=== PATIENT | male | born 1960 | race Caucasian/White ===

== ENCOUNTER 2017-12-10 14:37 | Inpatient (IN) | payer OTHER ==
[2017-12-10 15:59] VITALS: BMI 36.9
--- NOTE | 2017-12-10 19:36 | HP ---
COWS - Scale Resting Pulse: 0= ID 80 or Below Sweatin= Beads of Sweat on Face Restless Observation: 1= Difficult to Sit Still Pupil Size: 1= Pupils >than Normal Bone or Joint Aches: 1= Mild Discomfort (around hips r/t withdrawal) Runny Nose/ Eye Tearin= Runny Nose/Eyes GI Upset > 30mins: 2= Nausea/Diarrhea (nausea. No diarrhea.) Tremor Observation: 2= Slight Tremor Visible Yawning Observation: 0= None Anxiety or Irritability: 1=Feels Anxious/Irritable Goose Flesh Skin: 0=Smooth Skin COWS Score: 13 Admission ROS [facility] Chief Complaint: Here for heroin withdrawal. Allergies/Adverse Reactions: Allergies Allergy/AdvReac Type Severity Reaction Status Date / Time No Known Allergies Allergy Verified 12/10/17 17:16 History of Present Illness: Used to use heroin at age 25 for years. Was incarcerated for 15 years years and heroin use was minimal. Last incarceration 2007- 2015 and restarted heroin use after 4 years sobriety during last incarcerated. Went to [facility] program for 12/2015 to July 2017. Relapsed 30 days ago and has been using daily for last month. Denies alcohol or benzo use. States when discharged will go to [facility] out-patient program. Hx. depression and PTSD and on medications being f/u by psychiatry at the [facility]. Denies significant PMH/PSH. Uses chewing tobacco. Exam Limitations: No Limitations - Ebola screening Have you traveled outside of the country in the last 21 days: No (N) Have you had contact with anyone from an Ebola affected area: No Have you been sick,other than usual withdrawal symptoms: No Do you have a fever: No - Review of Systems Constitutional: Diaphoresis, Loss of Appetite (r/t withdrawal), Changes in sleep (Has difficulty falling and stayig asleep. States seroquel helps.) EENT: reports: Blurred Vision (Wears glasses.) Respiratory: reports: No Symptoms reported, SOB with Exertion (Feels r/t weight and stomach girth.) Cardiac: reports: No Symptoms Reported GI: reports: Abdominal Distended (r/t obesity), Nausea (r/t withdrawal) : reports: No Symptoms Reported Musculoskeletal: reports: No Symptoms Reported (Only r/t withdrawal) Integumentary: reports: Pruritus (r/t withdrawal) Neuro: reports: Tremors Endocrine: reports: No Symptoms Reported Hematology: reports: No Symptoms Reported Psychiatric: reports: Orientated x3, Agitated, Anxious, Depressed (Hx depression and PTSD. Denies suicide or violent ideation.) Patient History - Patient Medical History Hx Anemia: No Hx Asthma: No Hx Chronic Obstructive Pulmonary Disease (COPD): No Hx Cancer: No Hx Cardiac Disorders: No Hx Congestive Heart Failure: No Hx Hypertension: No Hx Hypercholesterolemia: No Hx Pacemaker: No HX Cerebrovascular Accident: No Hx Seizures: No Hx Diabetes: No Hx Gastrointestinal Disorders: No Hx Liver Disease: No Hx Genitourinary Disorders: No Hx Sexually Transmitted Disorders: No Hx Renal Disease (ESRD): No Hx Thyroid Disease: No Hx Human Immunodeficiency Virus (HIV): No (2015) Hx Hepatitis C: Yes (Rx'd w/ Harvoni) Hx Depression: Yes (On meds. Denies S/) Hx Suicide Attempt: No Hx Bipolar Disorder: No Hx Schizophrenia: No - Patient Surgical History Past Surgical History: No Hx Neurologic Surgery: No Hx Cataract Extraction: No Hx Cardiac Surgery: No Hx Lung Surgery: No Hx Breast Surgery: No Hx Breast Biopsy: No Hx Abdominal Surgery: Yes (HERNIA REPAIR- 2017) Hx Appendectomy: No Hx Cholecystectomy: No Hx Genitourinary Surgery: No Hx Section: No Hx Orthopedic Surgery: No Anesthesia Reaction: No - PPD History Previous Implant?: Yes Documented Results: Negative w/proof PPD to be Administered?: Yes - Smoking Cessation Smoking history: Former smoker Have you smoked in the past 12 months: No If you are a former smoker, when did you quit?: 2003 Hx Chewing Tobacco Use: Yes (3-4 pinchs daily since 2015) Initiated information on smoking cessation: Yes 'Breaking Loose' booklet given: 12/10/17 - Substance & Tx. History Hx Alcohol Use: No Hx Substance Use: Yes (Heroin) Substance Use Type: Heroin Hx Substance Use Treatment: Yes ([facility]) - Substances Abused Heroin Route: Inhalation Frequency: Daily Amount used: 3 BAGS Age of first use: 25 Date of Last Use: 12/10/17 (1 am) Family Disease History - Family Disease History Family Disease History: CA: Mother (Breast cancer - ), Sister (Breast cancer - 1 is ), Other: Grandparent (Alcoholism), Father (Alcoholism), Brother (Alcoholism) Admission Physical Exam [facility] - Vital Signs Vital Signs: Vital Signs - 24 hr 12/10/17 15:58 Temperature 96.2 F L Pulse Rate 73 Respiratory 20 Rate Blood Pressure 167/97 - Physical General Appearance: Yes: Obese (Greatest is abdominal adiposity), Tremorous, Irritable (mildly, but polite), Sweating, Anxious HEENTM: Yes: EOMI, Hearing grossly Normal, MAREN Respiratory: Yes: Chest Non-Tender, Lungs Clear, Normal Breath Sounds, No Respiratory Distress Neck: Yes: No masses,lesions,Nodules, Supple Breast: Yes: Breast Exam Deferred Cardiology: Yes: Regular Rhythm, Regular Rate, S1, S2 Abdominal: Yes: Normal Bowel Sounds, Non Tender, Soft, Protuberent Genitourinary: Yes: Within Normal Limits Back: Yes: Normal Inspection Musculoskeletal: Yes: full range of Motion, Gait Steady Extremities: Yes: Normal Capillary Refill, Normal Range of Motion, Non-Tender, Tremors (extended arms) Neurological: Yes: industrial relations representative II-XII NML intact, Fully Oriented, Motor Strength 5/5 Integumentary: Yes: Normal Color, Dry (poor skin turgor), Warm Lymphatic: Yes: Within Normal Limits - Diagnostic (1) Opiate withdrawal Current Visit: Yes Status: Acute (2) Insomnia Current Visit: Yes Status: Acute Qualifiers: Insomnia type: unspecified Qualified Code(s): G47.00 - Insomnia, unspecified (3) Dehydration Current Visit: Yes Status: Acute (4) Obesity (BMI 30-39.9) Current Visit: Yes Status: Acute (5) Withdrawal state due to use of tobacco Current Visit: Yes Status: Acute Cleared for Admission [facility] - Detox or Rehab [facility] Level of Care: Medically Managed Detox Regimen/Protocol: Methadone [facility] Breath Alcohol Content Breath Alcohol Content: 0 Urine Drug Screen - Results Drug Screen Negative: No Urine Drug Screen Results: OPI-Opiates
[2017-12-10] MEDS ORDERED: MENTHOL/PHENOL 1 EACH UD MM PRN (20:04)
[2017-12-10] MEDS ORDERED: guaiFENesin/D-METHORPHAN HB 10 ML UNIT-DOSE CUPS PO PRN (20:04)
[2017-12-10] MEDS ORDERED: ACETAMINOPHEN 325 MG TABLET (FP) PO PRN (20:04)
[2017-12-10] MEDS ORDERED: IBUPROFEN 400 MG TABLET (FP) PO PRN (20:04)
[2017-12-10] MEDS ORDERED: NICOTINE POLACRILEX 2 MG GUM BC PRN (20:04)
[2017-12-10] MEDS ORDERED: MAG HYDROX/AL HYDROX/SIMETH 30 ML UNIT-DOSE CUP PO PRN (20:04)
[2017-12-10] MEDS ORDERED: P-EPHED 60MG/TRIPROLIDI 2.5MG TABLET PO PRN (20:04)
[2017-12-10] MEDS ORDERED: MAGNESIUM HYDROX 2400MG/30ML ORAL SUSPENSION 30 ML CUP PO PRN (20:04)
[2017-12-10] MEDS ORDERED: MAGNESIUM CITRATE 300 ML BOTTLE PO PRN (20:04)
[2017-12-10] MEDS ORDERED: LOPERAMIDE HCL 2 MG CAPSULE PO PRN (20:04)
[2017-12-10] MEDS ORDERED: hydrOXYzine PAMOATE 50 MG CAPSULE (FP) PO PRN (20:04)
[2017-12-10] MEDS ORDERED: METHADONE HCL 10 MG TABLET (FOR DETOX USE ONLY) PO ONE ×2 (20:04→23:00)
[2017-12-10] MEDS ORDERED: MELATONIN 5 MG TABLETS PO PRN (22:00)
[2017-12-10] MEDS: THIAMINE HCL 100 MG TABLET (FP) PO SCH (22:04)
[2017-12-10] MEDS: diazePAM 5 MG TABLET PO PRN (22:04)
[2017-12-10 23:31] LABS: URINE APPEARANCE CLEAR; URINE BILIRUBIN NEGATIVE (<2.0 mg/dL); URINE BLOOD NEGATIVE (NEGATIVE); URINE COLOR YELLOW; URINE GLUCOSE (UA) NEGATIVE (NEGATIVE); URINE KETONE NEGATIVE (NEGATIVE); URINE LEUK ESTERASE NEGATIVE (NEGATIVE); URINE NITRITE NEGATIVE (NEGATIVE); URINE PROTEIN NEGATIVE (NEGATIVE)
[2017-12-11] MEDS ORDERED: METHADONE HCL 10 MG TABLET (FOR DETOX USE ONLY) PO ONE (10:00)
[2017-12-11 10:06] LABS: HEMATOCRIT 36.8 % (35.4-49); HEMOGLOBIN 12.8 GM/dL (11.7-16.9); MCH 32.6 pg (25.7-33.7); MCHC 34.8 g/dl (32.0-35.9); MEAN CELL VOLUME 93.7 fl (80-96); MEAN PLT VOLUME 7.7 fl (7.5-11.1); PLATELET COUNT 288 K/MM3 (134-434); RBC 3.92 M/mm3 (4.00-5.60); RDW 12.4 % (11.9-15.9); WHITE BLOOD COUNT 5.7 K/mm3 (4.0-10.0)
[2017-12-11] MEDS: diazePAM 5 MG TABLET PO PRN (10:09)
[2017-12-11] MEDS: NICOTINE 14 MG/24 HOURS TOPICAL PATCH TD SCH (10:09)
[2017-12-11] MEDS: PRENATAL VITAMINS W/ FOLIC ACID TABLET (FP) PO SCH (10:09)
[2017-12-11 12:17] LABS: ALBUMIN 3.4 g/dl (3.4-5.0); ANION GAP 7 (8-16); BILIRUBIN,TOTAL 0.5 mg/dL (0.2-1.0); BLOOD UREA NITROGEN 16 mg/dL (7-18); CALCIUM 8.7 mg/dL (8.5-10.1); CHLORIDE 102 mmol/L (98-107); CO2 30 mmol/L (21-32); CREATININE 1.2 mg/dL (0.7-1.3); GLUCOSE,RANDOM 88 mg/dL (74-106); POTASSIUM 4.1 mmol/L (3.5-5.1); SGOT/AST 20 U/L (15-37); SGPT/ALT 34 U/L (12-78); SODIUM 139 mmol/L (136-145); TOT PROT 6.3 g/dl (6.4-8.2)
--- NOTE | 2017-12-11 12:24 | EKG ---
Test Reason : Blood Pressure : / mmHG Vent. Rate : 067 BPM Atrial Rate : 067 BPM P-R Int : 162 ms QRS Dur : 102 ms QT Int : 406 ms P-R-T Axes : 032 005 029 degrees QTc Int : 429 ms NORMAL SINUS RHYTHM NORMAL ECG NO PREVIOUS ECGS AVAILABLE Confirmed by MD MARIIA, BERNY ([id number]) on 12/11/2017 12:24:07 PM Referred By: Confirmed By:BERNY CHIANG MD
[2017-12-11 12:51] LABS: ALK PHOS 67 U/L (45-117)
--- NOTE | 2017-12-11 13:27 | CONSULT ---
[facility] Psychiatric Consult - Data Date of interview: 12/11/17 Admission source: [facility] Identifying data: First admission to [facility] for this 57 y/o male seeking detox treatment on for heroin dependence.Patient is single without dependents,domiciled,unemployed and supported on Public Assistance.Mr Moreau introduces self as a [employer] who served three years (discharged in 1982).Never exposed to combat situations.Was stationed in the [facility]. Substance Abuse History: Confirmed by the patient in my interview.Smoking history: Former smoker. Have you smoked in the past 12 months: No. If you are a former smoker, when did you quit?: 2003. Hx Chewing Tobacco Use: Yes (3-4 pinchs daily since 2015). Initiated information on smoking cessation: Yes. ' Breaking Loose' booklet given: 12/10/17. - Substance & Tx. History. Hx Alcohol Use: No. Hx Substance Use: Yes (Heroin). Substance Use Type: Heroin. Hx Substance Use Treatment: Yes ([facility]). - Substances Abused. Heroin. Route: Inhalation. Frequency: Daily. Amount used: 3 BAGS. Age of first use: 25. Date of Last Use: 12/10/17 (1 am) Medical History: Obesity,hepatitis C and a history of abdominal herniorraphy ( 2017). Psychiatric History: One psychiatric hospitalization (1986) at the [facility] in [facility] for suicide attempt via hanging during incarceration.Patient endorses the diagnoses of MDD and PTSD.Sees a psychiatrist at the [facility] mental health clinic.Prescribed gabapentin 300 mg po tid + abilify 20 mg/day + depakote 500 mg/daily + seroquel 50 mg/ hs.Mr Moreau insists that he is adherent to his medications.Last taken prior to this [facility] visit.No recurrence of suicide attempts since 1986. Physical/Sexual Abuse/Trauma History: Heavy history of trauma : patient served 26 cumulative years in care home.Was charged with attempted murder as per self- report.Remains on parole until August 2018.Admits to episodic flashbacks and nightmares over the years. Additional Comment: Urine Drug Screen Results: OPI-Opiates.Noted. Mental Status Exam - Mental Status Exam Alert and Oriented to: Time, Place, Person Cognitive Function: Good Patient Appearance: Well Groomed (short stature,overweight ; both arms + forearms covered with tattoos) Mood: Withdrawn, Anxious Affect: Constricted Patient Behavior: Fatigued, Appropriate, Cooperative Speech Pattern: Clear, Appropriate Voice Loudness: Normal Thought Process: Goal Oriented Thought Disorder: Not Present Hallucinations: Denies Suicidal Ideation: Denies Homicidal Ideation: Denies Insight/Judgement: Fair Sleep: Poorly, Difficulty falling asleep Appetite: Good Muscle strength/Tone: Normal Gait/Station: Normal Psychiatric Findings - Problem List (Roy 1, 2,3) (1) Opioid dependence with withdrawal Current Visit: Yes Status: Acute (2) Substance induced mood disorder Current Visit: Yes Status: Acute (3) Post traumatic stress disorder (PTSD) Current Visit: Yes Status: Chronic Comment: As per self-report. (4) Insomnia Current Visit: Yes Status: Acute Qualifiers: Insomnia type: unspecified Qualified Code(s): G47.00 - Insomnia, unspecified - Initial Treatment Plan Initial Treatment Plan: Psychoeducation.Sleep hygiene.Detoxification in progress.Medications : seroquel 50 mg po hs + abilify 20 mg po daily + gabapentin 300 mg po tid + depakote 500 mg po hs.Side effects/benefits of each drug are explained to the patient.Made aware of risk of metabolic syndrome, oversedation,liver dysfunction,blood dyscrasias,hair loss and orthostasis.Mr Moreau reports good tolerability to his medications and he insists on their inclusion in the current regimen.Valproic acid level : requested.Will follow.Monitor daily clinical course.
--- NOTE | 2017-12-11 13:29 | PN ---
BHS COWS - Scale Resting Pulse: 0= MA 80 or Below Sweatin= Chills/Flushing Restless Observation: 1= Difficult to Sit Still Pupil Size: 0= Normal to Room Light Bone or Joint Aches: 2= Severe Diffuse Aches Runny Nose/ Eye Tearin= None GI Upset > 30mins: 2= Nausea/Diarrhea Tremor Observation of Outstretched Hands: 0= None Yawning Observation: 1= 1-2x During Session Anxiety or Irritability: 2=Irritable/Anxious Goose Flesh Skin: 3=Piloerection COWS Score: 12 BHS Progress Note (SOAP) Subjective: Anxious, Nausea, Body Aches, Sweating. Objective: PATIENT A & O X 3, OBSERVED AMBULATING ON UNIT. NO ACUTE DISTRESS. 12/11/17 13:28 Vital Signs Temperature 98.5 F 12/11/17 09:04 Pulse Rate 70 12/11/17 09:04 Respiratory Rate 18 12/11/17 09:04 Blood Pressure 132/82 12/11/17 09:04 O2 Sat by Pulse Oximetry (%) Laboratory Tests 12/10/17 12/11/17 12/11/17 22:30 07:20 07:20 WBC 5.7 RBC 3.92 L Hgb 12.8 Hct 36.8 MCV 93.7 MCH 32.6 MCHC 34.8 RDW 12.4 Plt Count 288 MPV 7.7 Sodium 139 Potassium 4.1 Chloride 102 Carbon Dioxide 30 Anion Gap 7 L BUN 16 Creatinine 1.2 Creat Clearance w eGFR > 60 Random Glucose 88 Calcium 8.7 Total Bilirubin 0.5 AST 20 ALT 34 Alkaline Phosphatase 67 Total Protein 6.3 L Albumin 3.4 Urine Color Yellow Urine Appearance Clear Urine pH 6.0 Ur Specific [place] 1.018 Urine Protein Negative Urine Glucose (UA) Negative Urine Ketones Negative Urine Blood Negative Urine Nitrite Negative Urine Bilirubin Negative Urine Urobilinogen 2.0 Ur Leukocyte Esterase Negative LABS NOTED. RPR RESULT PENDING. 12/11/17 13:29 Assessment: 12/11/17 13:28 WITHDRAWAL SYMPTOMS. Plan: CONTINUE DETOX.
[2017-12-11] MEDS: GABAPENTIN 300 MG CAPSULE (FP) PO SCH ×2 (15:24→22:17)
[2017-12-11] MEDS: QUEtiapine FUMARATE 50 MG TABLET PO SCH (22:17)
[2017-12-11] MEDS: THIAMINE HCL 100 MG TABLET (FP) PO SCH (22:17)
[2017-12-12] MEDS: diazePAM 5 MG TABLET PO PRN ×3 (06:05→22:16)
[2017-12-12] MEDS: GABAPENTIN 300 MG CAPSULE (FP) PO SCH ×3 (06:05→22:16)
[2017-12-12] MEDS ORDERED: METHADONE HCL 5 MG TABLET (FOR DETOX USE ONLY) PO ONE (10:00)
[2017-12-12] MEDS: ARIPiprazole 10 MG TABLET PO SCH (10:09)
[2017-12-12] MEDS: NICOTINE 14 MG/24 HOURS TOPICAL PATCH TD SCH (10:09)
[2017-12-12] MEDS: PRENATAL VITAMINS W/ FOLIC ACID TABLET (FP) PO SCH (10:09)
--- NOTE | 2017-12-12 11:23 | PN ---
BHS COWS - Scale Resting Pulse: 0= [place] 80 or Below Sweatin= Chills/Flushing Restless Observation: 1= Difficult to Sit Still Pupil Size: 0= Normal to Room Light Bone or Joint Aches: 1= Mild Discomfort Runny Nose/ Eye Tearin= Nasal Congestion GI Upset > 30mins: 1= Stomach Cramp Tremor Observation of Outstretched Hands: 2= Slight Tremor Visible Yawning Observation: 2= >3x During Session Anxiety or Irritability: 2=Irritable/Anxious Goose Flesh Skin: 0=Smooth Skin COWS Score: 11 BHS Progress Note (SOAP) Subjective: Stomach Cramping, Anxious, Tremors. Objective: PATIENT A & O X 2 (UNCERTAIN ABOUT CURRENT DAY / DATE). NO ACUTE DISTRESS. 12/12/17 11:18 Vital Signs Temperature 98.6 F 12/12/17 09:24 Pulse Rate 76 12/12/17 09:24 Respiratory Rate 20 12/12/17 09:24 Blood Pressure 140/78 12/12/17 09:24 O2 Sat by Pulse Oximetry (%) Laboratory Tests 12/10/17 12/11/17 12/11/17 22:30 07:20 07:20 WBC 5.7 RBC 3.92 L Hgb 12.8 Hct 36.8 MCV 93.7 MCH 32.6 MCHC 34.8 RDW 12.4 Plt Count 288 MPV 7.7 Sodium 139 Potassium 4.1 Chloride 102 Carbon Dioxide 30 Anion Gap 7 L BUN 16 Creatinine 1.2 Creat Clearance w eGFR > 60 Random Glucose 88 Calcium 8.7 Total Bilirubin 0.5 AST 20 ALT 34 Alkaline Phosphatase 67 Total Protein 6.3 L Albumin 3.4 Urine Color Yellow Urine Appearance Clear Urine pH 6.0 Ur Specific [place] 1.018 Urine Protein Negative Urine Glucose (UA) Negative Urine Ketones Negative Urine Blood Negative Urine Nitrite Negative Urine Bilirubin Negative Urine Urobilinogen 2.0 Ur Leukocyte Esterase Negative RPR Titer 12/11/17 07:20 WBC RBC Hgb Hct MCV MCH MCHC RDW Plt Count MPV Sodium Potassium Chloride Carbon Dioxide Anion Gap BUN Creatinine Creat Clearance w eGFR Random Glucose Calcium Total Bilirubin AST ALT Alkaline Phosphatase Total Protein Albumin Urine Color Urine Appearance Urine pH Ur Specific [place] Urine Protein Urine Glucose (UA) Urine Ketones Urine Blood Urine Nitrite Urine Bilirubin Urine Urobilinogen Ur Leukocyte Esterase RPR Titer Nonreactive LABS NOTED. Assessment: 12/12/17 11:20 WITHDRAWAL SYMPTOMS. Plan: CONTINUE DETOX.
--- NOTE | 2017-12-12 18:00 | PN ---
S Progress Note Note: Psychiatry Attending's note : Valproic acid level = 24.7 (sub-therapeutic). Indicative of sub-optimal adherence to the drug. Will follow.
[2017-12-12] MEDS: THIAMINE HCL 100 MG TABLET (FP) PO SCH (22:16)
[2017-12-12] MEDS: QUEtiapine FUMARATE 50 MG TABLET PO SCH (22:16)
[2017-12-13] MEDS: GABAPENTIN 300 MG CAPSULE (FP) PO SCH ×3 (05:39→22:10)
[2017-12-13] MEDS ORDERED: METHADONE HCL 5 MG TABLET (FOR DETOX USE ONLY) PO ONE (10:00)
[2017-12-13] MEDS: diazePAM 5 MG TABLET PO PRN ×2 (10:08→18:24)
[2017-12-13] MEDS: PRENATAL VITAMINS W/ FOLIC ACID TABLET (FP) PO SCH (10:08)
[2017-12-13] MEDS: NICOTINE 14 MG/24 HOURS TOPICAL PATCH TD SCH (10:08)
[2017-12-13] MEDS: ARIPiprazole 10 MG TABLET PO SCH (10:08)
--- NOTE | 2017-12-13 11:50 | PN ---
BHS Progress Note (SOAP) Subjective: Fatigue, Sweating. Objective: PATIENT A & O X 3, OBSERVED AMBULATING ON UNIT. NO ACUTE DISTRESS. 12/13/17 11:47 Vital Signs Temperature 96.8 F L 12/13/17 09:18 Pulse Rate 73 12/13/17 09:18 Respiratory Rate 18 12/13/17 09:18 Blood Pressure 132/77 12/13/17 09:18 O2 Sat by Pulse Oximetry (%) Laboratory Tests 12/10/17 12/11/17 12/11/17 22:30 07:20 07:20 WBC 5.7 RBC 3.92 L Hgb 12.8 Hct 36.8 MCV 93.7 MCH 32.6 MCHC 34.8 RDW 12.4 Plt Count 288 MPV 7.7 Sodium 139 Potassium 4.1 Chloride 102 Carbon Dioxide 30 Anion Gap 7 L BUN 16 Creatinine 1.2 Creat Clearance w eGFR > 60 Random Glucose 88 Calcium 8.7 Total Bilirubin 0.5 AST 20 ALT 34 Alkaline Phosphatase 67 Total Protein 6.3 L Albumin 3.4 Urine Color Yellow Urine Appearance Clear Urine pH 6.0 Ur Specific [place] 1.018 Urine Protein Negative Urine Glucose (UA) Negative Urine Ketones Negative Urine Blood Negative Urine Nitrite Negative Urine Bilirubin Negative Urine Urobilinogen 2.0 Ur Leukocyte Esterase Negative Valproic Acid RPR Titer 12/11/17 12/12/17 07:20 06:00 WBC RBC Hgb Hct MCV MCH MCHC RDW Plt Count MPV Sodium Potassium Chloride Carbon Dioxide Anion Gap BUN Creatinine Creat Clearance w eGFR Random Glucose Calcium Total Bilirubin AST ALT Alkaline Phosphatase Total Protein Albumin Urine Color Urine Appearance Urine pH Ur Specific [place] Urine Protein Urine Glucose (UA) Urine Ketones Urine Blood Urine Nitrite Urine Bilirubin Urine Urobilinogen Ur Leukocyte Esterase Valproic Acid 24.7 L RPR Titer Nonreactive LABS NOTED. Assessment: 12/13/17 11:47 WITHDRAWAL SYMPTOMS. Plan: CONTINUE DETOX. INCREASE DAILY PO FLUID INTAKE. ENCOURAGE AMBULATION. PATIENT REPORTS THAT HE IS TOLERATING CURRENT DETOX SYMPTOMS WELL. AT PATIENT'S REQUEST, CURRENT DETOX MEDICATION REGIMEN MODIFIED SO THAT PATIENT MAY BE DISCHARGED TOMORROW, 12/14/2017.
[2017-12-13] MEDS: THIAMINE HCL 100 MG TABLET (FP) PO SCH (22:10)
[2017-12-13] MEDS: QUEtiapine FUMARATE 50 MG TABLET PO SCH (22:10)
[2017-12-14] MEDS: GABAPENTIN 300 MG CAPSULE (FP) PO SCH (05:30)
[2017-12-14] MEDS ORDERED: METHADONE HCL 5 MG TABLET (FOR DETOX USE ONLY) PO ONE (06:00)
[2017-12-14 06:19] VITALS: BP 139/72; PULSE 72; TEMP 97.4
--- NOTE | 2017-12-14 09:40 | PN ---
[facility] Progress Note Note: Psychiatry Attending's note : Patient declined scripts. " I don't need scripts[facility] Mr Moreau stated he has an appointment next week with his [facility] provider.
[2017-12-14] MEDS ORDERED: METHADONE HCL 10 MG TABLET (FOR DETOX USE ONLY) PO ONE (10:00)
--- NOTE | 2017-12-14 19:52 | PN ---
BHS Progress Note (SOAP) Subjective: Patient denies current Detox symptoms and reports that he feels well overall. Objective: PATIENT A & O X 3, OBSERVED AMBULATING ON UNIT. NO ACUTE DISTRESS. 12/14/17 19:50 Vital Signs Temperature 97.4 F L 12/14/17 06:18 Pulse Rate 72 12/14/17 06:18 Respiratory Rate 18 12/14/17 06:18 Blood Pressure 139/72 12/14/17 06:18 O2 Sat by Pulse Oximetry (%) Laboratory Tests 12/10/17 12/11/17 12/11/17 22:30 07:20 07:20 WBC 5.7 RBC 3.92 L Hgb 12.8 Hct 36.8 MCV 93.7 MCH 32.6 MCHC 34.8 RDW 12.4 Plt Count 288 MPV 7.7 Sodium 139 Potassium 4.1 Chloride 102 Carbon Dioxide 30 Anion Gap 7 L BUN 16 Creatinine 1.2 Creat Clearance w eGFR > 60 Random Glucose 88 Calcium 8.7 Total Bilirubin 0.5 AST 20 ALT 34 Alkaline Phosphatase 67 Total Protein 6.3 L Albumin 3.4 Urine Color Yellow Urine Appearance Clear Urine pH 6.0 Ur Specific [place] 1.018 Urine Protein Negative Urine Glucose (UA) Negative Urine Ketones Negative Urine Blood Negative Urine Nitrite Negative Urine Bilirubin Negative Urine Urobilinogen 2.0 Ur Leukocyte Esterase Negative Valproic Acid RPR Titer 12/11/17 12/12/17 07:20 06:00 WBC RBC Hgb Hct MCV MCH MCHC RDW Plt Count MPV Sodium Potassium Chloride Carbon Dioxide Anion Gap BUN Creatinine Creat Clearance w eGFR Random Glucose Calcium Total Bilirubin AST ALT Alkaline Phosphatase Total Protein Albumin Urine Color Urine Appearance Urine pH Ur Specific [place] Urine Protein Urine Glucose (UA) Urine Ketones Urine Blood Urine Nitrite Urine Bilirubin Urine Urobilinogen Ur Leukocyte Esterase Valproic Acid 24.7 L RPR Titer Nonreactive LABS NOTED. 12/14/17 19:51 Assessment: 12/14/17 19:51 COMPLETION OF DETOX REGIMEN. Plan: PATIENT SCHEDULED FOR DISCHARGE FROM DETOX UNIT TODAY.
--- NOTE | 2017-12-14 19:55 | DS ---
[facility] Detox Discharge Summary Admission Date: 12/10/17 Discharge Date: 12/14/17 - History Present History: Opioid Dependence Additional Comments: PATIENT GOING TO [facility] ([place] FOR AFTERCARE. PATIENT WAS DISCHARGED FROM DETOX UNIT IN STABLE MEDICAL CONDITION. Pertinent Past History: Dehydration, PTSD, Insomnia, Depression, Hep C (Treated). - Physical Exam Results Vital Signs: Vital Signs Temperature 97.4 F L 12/14/17 06:18 Pulse Rate 72 12/14/17 06:18 Respiratory Rate 18 12/14/17 06:18 Blood Pressure 139/72 12/14/17 06:18 O2 Sat by Pulse Oximetry (%) Pertinent Admission Physical Exam Findings: WITHDRAWAL SYMPTOMS. Laboratory Tests 12/10/17 12/11/17 12/11/17 22:30 07:20 07:20 WBC 5.7 RBC 3.92 L Hgb 12.8 Hct 36.8 MCV 93.7 MCH 32.6 MCHC 34.8 RDW 12.4 Plt Count 288 MPV 7.7 Sodium 139 Potassium 4.1 Chloride 102 Carbon Dioxide 30 Anion Gap 7 L BUN 16 Creatinine 1.2 Creat Clearance w eGFR > 60 Random Glucose 88 Calcium 8.7 Total Bilirubin 0.5 AST 20 ALT 34 Alkaline Phosphatase 67 Total Protein 6.3 L Albumin 3.4 Urine Color Yellow Urine Appearance Clear Urine pH 6.0 Ur Specific [place] 1.018 Urine Protein Negative Urine Glucose (UA) Negative Urine Ketones Negative Urine Blood Negative Urine Nitrite Negative Urine Bilirubin Negative Urine Urobilinogen 2.0 Ur Leukocyte Esterase Negative Valproic Acid RPR Titer 12/11/17 12/12/17 07:20 06:00 WBC RBC Hgb Hct MCV MCH MCHC RDW Plt Count MPV Sodium Potassium Chloride Carbon Dioxide Anion Gap BUN Creatinine Creat Clearance w eGFR Random Glucose Calcium Total Bilirubin AST ALT Alkaline Phosphatase Total Protein Albumin Urine Color Urine Appearance Urine pH Ur Specific [place] Urine Protein Urine Glucose (UA) Urine Ketones Urine Blood Urine Nitrite Urine Bilirubin Urine Urobilinogen Ur Leukocyte Esterase Valproic Acid 24.7 L RPR Titer Nonreactive LABS NOTED. - Treatment Hospital Course: Detox Protocol Followed, Detoxed Safely, Responded well, Discharged Condition Good Patient has Accepted a Rehab Referral to: PT. GOING TO [facility] ([place] - Medication Discharge Medications: Ambulatory Orders Aripiprazole [Abilify -] 20 mg PO DAILY 12/10/17 Divalproex *ER* [Depakote *ER* -] 500 mg PO DAILY 12/10/17 Gabapentin [Neurontin -] 300 mg PO TID 12/10/17 Quetiapine Fumarate [Seroquel -] 50 mg PO HS 12/10/17 - Diagnosis (1) Opioid dependence with withdrawal Status: Acute (2) Dehydration Status: Acute (3) Insomnia Status: Acute Qualifiers: Insomnia type: unspecified Qualified Code(s): G47.00 - Insomnia, unspecified (4) Obesity (BMI 30-39.9) Status: Chronic (5) Withdrawal state due to use of tobacco Status: Acute (6) Substance induced mood disorder Status: Acute (7) Post traumatic stress disorder (PTSD) Status: Chronic - AMA Did Patient Leave Against Medical Advice: No
[2017-12-15] MEDS ORDERED: METHADONE HCL 5 MG TABLET (FOR DETOX USE ONLY) PO ONE (06:00)
== END 2017-12-14 08:45 | disposition home or self-care (01) | DRG 773 ==
LOC: YASAS 14:37 → Y3N 18:03
PROVIDERS: ADMIT Surgery; ATTEND Surgery
PROC: HZ2ZZZZ Detoxification Services for Substance Abuse Treatment (ICD-10-PCS; principal; 2017-12-10)
DX: F11.23 Opioid dependence with withdrawal (principal); F17.203 Nicotine dependence unspecified, with withdrawal; F19.24 Other psychoactive substance dependence with psychoactive substance-induced mood disorder; F43.10 Post-traumatic stress disorder, unspecified; E86.0 Dehydration; G47.00 Insomnia, unspecified; B18.2 Chronic viral hepatitis C; E66.9 Obesity, unspecified; Z68.37 Body mass index [BMI] 37.0-37.9, adult
CPT/HCPCS: 36415; 80053; 80164; 81003; 85027; 86593; 93005; 93010